=== PATIENT | female | born 1995 | race Caucasian/White ===

== ENCOUNTER 2017-12-28 22:43 | Emergency (ER) | payer SELFPAY ==
[2017-12-28] MEDS ORDERED: Lidocaine 1% PF 5 ML VIAL ONE (22:55)
[2017-12-28] MEDS ORDERED: Bacitracin Zinc 1 Packet ONE (23:28)
--- NOTE | 2017-12-28 23:54 | RAD ---
THREE VIEWS OF THE RIGHT HAND 12/28/17 COMPARISON: None. HISTORY: Right hand pain. FINDINGS: There is soft tissue swelling and bandaging material associated with 4th and 5th fingers. No radiopaq ue foreign body, displaced fracture, or evidence of dislocation seen. IMPRESSION: Nonspecific soft tissue swelling with no displaced fracture or dislocation noted. POS: [facility]
== END 2017-12-29 00:01 | disposition home or self-care (01) ==
LOC: ERS 22:43
DX: S61.216A Laceration without foreign body of right little finger without damage to nail, initial encounter (principal); W26.0XXA Contact with knife, initial encounter
CPT/HCPCS: 12001; J2001

== ENCOUNTER 2018-05-01 04:05 | Emergency (ER) | payer SELFPAY ==
[2018-05-01] MEDS ORDERED: Acetaminophen 500 MG TAB ONE (04:21)
[2018-05-01 04:55] LABS: BHCG - Serum Negative (NEGATIVE); Pregs Control Background? CLEAR/WHITE (CLR/WHITE); Pregs Control Bar Appear? YES (CONTROL BAR)
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
== END 2018-05-01 05:45 | disposition home or self-care (01) ==
LOC: ERS 04:05
DX: S61.411A Laceration without foreign body of right hand, initial encounter (principal); S50.02XA Contusion of left elbow, initial encounter; S00.81XA Abrasion of other part of head, initial encounter; S80.812A Abrasion, left lower leg, initial encounter; S80.811A Abrasion, right lower leg, initial encounter; B19.20 Unspecified viral hepatitis C without hepatic coma; B20 Human immunodeficiency virus [HIV] disease; F17.210 Nicotine dependence, cigarettes, uncomplicated; V86.99XA Unspecified occupant of other special all-terrain or other off-road motor vehicle injured in nontraffic accident, initial encounter
CPT/HCPCS: 12001; 36415; 84703

== ENCOUNTER 2019-04-20 00:33 | Emergency (ER) | payer SELFPAY ==
[2019-04-20] MEDS ORDERED: Lidocaine 1% (PF) 30 ML VIAL ONE (01:21)
== END 2019-04-20 01:55 | disposition home or self-care (01) ==
LOC: ERS 00:33
DX: S61.512A Laceration without foreign body of left wrist, initial encounter (principal); B19.20 Unspecified viral hepatitis C without hepatic coma; F17.210 Nicotine dependence, cigarettes, uncomplicated; F43.10 Post-traumatic stress disorder, unspecified; F41.9 Anxiety disorder, unspecified; F32.9 Major depressive disorder, single episode, unspecified; W26.0XXA Contact with knife, initial encounter
CPT/HCPCS: 12001; J2001

== ENCOUNTER 2019-05-31 12:59 | Emergency (ER) | payer SELFPAY ==
[2019-05-31 13:34] LABS: #Basophils 0.1 thou/uL (0.0-0.2); #Eosinphils 0.1 thou/uL (0.0-0.7); #Lymphocytes 1.7 thou/uL (1.20-3.40); #Monocytes 0.5 thou/uL (0.11-0.59); #Neutrophils 5.5 thou/uL (1.40-6.50); %Eosinophils 1.5 % (0.0-10.0); %Lymphocytes 21.9 % (21.0-51.0); %Monocytes 6.1 % (0.0-10.0); %Neutrophils 69.5 % (42.0-75.0); Hemoglobin 13.7 g/dL (12.0-16.0); Mean Corpuscular HGB CONC 34.1 g/dL (32.0-36.0); Mean Corpuscular Hemoglobin 29.3 pg (27.0-31.0); Mean Corpuscular Volume 85.9 fL (78.0-98.0); Platelet Count 267 thou/uL (130-400); RBC Distribution Width 11.6 % (11.5-14.5); Red Blood Cell (RBC) Count 4.67 mill/uL (4.20-5.40); White Blood Cell (WBC) Count 7.9 thou/uL (4.8-10.8)
[2019-05-31 13:55] LABS: ALT (SGPT) 42 U/L (8-55); AST (SGOT) 27 U/L (5-34); Albumin 4.4 g/dL (3.5-5.0); Alkaline Phosphatase 66 U/L (40-150); Anion Gap 11 mmol/L (10-20); BUN (Urea Nitrogen) 9 mg/dL (7.0-18.7); Bilirubin, Total 1.4 mg/dL (0.2-1.2); CK (CPK) 110 U/L (29-168); Calc. Creatinine Clearance 0 mL/min (70-130); Calcium 9.6 mg/dL (7.8-10.44); Carbon Dioxide 25 mmol/L (22-29); Chloride 102 mmol/L (98-107); Estimated GFR-MDRD Greater than 90; Globulin 3.1 g/dL (2.4-3.5); Glucose 88 mg/dL (70-105); Protein, Total 7.5 g/dL (6.0-8.3); Sodium 134 mmol/L (136-145)
[2019-05-31] MEDS ORDERED: Acetaminophen 500 MG TAB ONE (14:55)
== END 2019-05-31 15:08 | disposition home or self-care (01) ==
LOC: ERS 12:59
DX: E86.0 Dehydration (principal); F31.9 Bipolar disorder, unspecified; F41.9 Anxiety disorder, unspecified; F17.210 Nicotine dependence, cigarettes, uncomplicated; Z79.899 Other long term (current) drug therapy
CPT/HCPCS: 80053; 82550; 85025; 96360; 96361

== ENCOUNTER 2019-11-25 23:13 | Emergency (ER) | payer SELFPAY ==
[2019-11-25 23:37] LABS: Bacteria/HPF 1+ HPF (None Seen); Bilirubin Negative (Negative); Blood, Urine Negative (Negative); Clarity Clear (Clear); Glucose, Urine (Dipstick) Normal (Negative); Leukocyte 75 Leu/uL (Negative); Nitrite Negative (Negative); Pregnancy Test - Urine (BHCG) Negative (Negative); Pregu Control Background? CLEAR/WHITE (CLR/WHITE); Pregu Control Bar Appear? YES (CONTROL BAR); Protein, Urine (Dipstick) Negative (Neg-Trace); RBC/HPF 0-3 HPF (0-3); Specific Gravity 1.009 (1.002-1.036); Squamous Epithelial 0-3 HPF (0-3); Urobilinogen Normal mg/dL (Less than 2)
[2019-11-25] MEDS ORDERED: metroNIDAZOLE 250 MG TAB ONE ×2 (23:41→23:47)
[2019-11-25] MEDS ORDERED: Lidocaine 1% PF 5 ML VIAL ONE (23:41)
[2019-11-25] MEDS ORDERED: cefTRIAXone\\ROCEPHIN 250 MG VIAL ONE (23:41)
[2019-11-25] MEDS ORDERED: Azithromycin 250 MG TAB ONE ×2 (23:41→23:44)
[2019-11-25] MEDS ORDERED: Amoxicillin/Potassium Clav 250 MG TAB ONE (23:41)
[2019-11-28 00:15] LABS: Chlamydia by PCR Not Detected (NotDetected); GC by PCR Not Detected (NotDetected)
== END 2019-11-26 00:02 | disposition home or self-care (01) ==
LOC: ERS 23:13
DX: N30.90 Cystitis, unspecified without hematuria (principal); F41.9 Anxiety disorder, unspecified; F31.9 Bipolar disorder, unspecified; F43.10 Post-traumatic stress disorder, unspecified; F17.210 Nicotine dependence, cigarettes, uncomplicated
CPT/HCPCS: 81003; 81015; 81025; 87086; 87480; 87491; 87510; 87591; 87660; 96372; 99283; J0696; J2001

== ENCOUNTER 2019-12-24 00:56 | Emergency (ER) | payer SELFPAY ==
[2019-12-24 01:26] LABS: Bilirubin Negative (Negative); Blood, Urine 2+ (Negative); Clarity Clear (Clear); Glucose, Urine (Dipstick) Normal (Negative); Leukocyte Negative Leu/uL (Negative); Nitrite Negative (Negative); Protein, Urine (Dipstick) 30 mg/dL (Neg-Trace); RBC/HPF 0-3 HPF (0-3); WBC/HPF 0-3 HPF (0-3)
[2019-12-24 01:31] LABS: Bacteria/HPF 1+ HPF (None Seen)
[2019-12-24 01:32] LABS: Pregnancy Test - Urine (BHCG) Negative (Negative); Pregu Control Background? CLEAR/WHITE (CLR/WHITE); Pregu Control Bar Appear? YES (CONTROL BAR); Specific Gravity 1.028 (1.002-1.036)
== END 2019-12-24 01:55 | disposition home or self-care (01) ==
LOC: ERS 00:56
DX: N93.9 Abnormal uterine and vaginal bleeding, unspecified (principal); F41.9 Anxiety disorder, unspecified; F31.9 Bipolar disorder, unspecified; F43.10 Post-traumatic stress disorder, unspecified; F17.210 Nicotine dependence, cigarettes, uncomplicated
CPT/HCPCS: 81003; 81015; 81025; 99284